=== PATIENT | female | born 2000 | race Hispanic/Latino ===

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

== ENCOUNTER 2021-06-25 11:39 | Emergency (ER) | payer MEDICAID ==
[~2021-06-25] VITALS: Ht 165.1 cm; Wt 90.0 kg
[2021-06-25 12:09] VITALS: BP 148/100
[2021-06-25 12:16] VITALS: BP 144/96
[2021-06-25 12:30] VITALS: BP 153/88
[2021-06-25 13:09] LABS: AMYLASE 69 u/l (30-110); BUN 10 mg/dL (8-21); BUN/CREATININE RATIO 14 (12-20 (CALC)); CHLORIDE 107 mmol/l (95-108); CREATININE 0.7 mg/dL (0.5-1.0); GFR > 60 ML/MIN (>=60 (CALC)); GFR FOR AFR.AMER. > 60 ML/MIN (>=60 (CALC)); LIPASE 50 u/l (23-300); SGOT/AST 25 u/l (14-36); SODIUM 137 mmol/l (137-146); TOTAL PROTEIN 8.1 g/dL (6.3-8.2)
[2021-06-25 13:11] LABS: ALKALINE PHOSPHATASE 264 u/l (38-126); ANION GAP 17 (6-22 (CALC)); BILIRUBIN, TOTAL 0.7 mg/dL (0.0-1.4); CARBON DIOXIDE 17 mmol/l (22-30)
[2021-06-25 14:15] LABS: HEMOGLOBIN 10.6 g/dl (12.0-16.0); IMMATURE GRANULOCYTES 0.3 % (0.0-5.0); MEAN CELL VOLUME 89.7 fL CALC (80.0-100.0); MEAN CORPUSCULAR HGB 28.7 pG CALC (26.0-32.0); NEUT# 14.31 thou/uL (2.00-7.15); RED BLOOD COUNT 3.69 mill/uL (4.20-5.60); RED CELL DISTRI WIDTH 14.3 % (11.5-15.5)
[2021-06-25 14:16] LABS: HEMATOCRIT 33.1 % (37.0-47.0)
[2021-06-25 15:34] VITALS: BP 153/98
== END 2021-06-25 15:35 ==
LOC: ED 11:39
PROVIDERS: Emergency Medicine
DX: O80 Encounter for full-term uncomplicated delivery (principal); Z3A.00 Weeks of gestation of pregnancy not specified; Z37.0 Single live birth
CPT/HCPCS: Q9967